=== PATIENT | female | born 1960 | race Caucasian/White ===

== ENCOUNTER 2020-07-27 12:28 | Emergency (ER) | payer OTHER ==
[~2020-07-27] VITALS: Ht 165.1 cm; Wt 89.8 kg
[~2020-07-27 12:28] MED LIST: ZESTRIL5 MG PO
[2020-07-27 12:47] VITALS: Ht 165.1 cm; Wt 89.8 kg
[2020-07-27 14:47] VITALS: BP 144/89
== END 2020-07-27 14:47 | disposition home or self-care (01) ==
LOC: ED 12:28
DX: S82.402A Unspecified fracture of shaft of left fibula, initial encounter for closed fracture (principal); I10 Essential (primary) hypertension; X58.XXXA Exposure to other specified factors, initial encounter; Y93.89 Activity, other specified; Y92.89 Other specified places as the place of occurrence of the external cause; Y99.8 Other external cause status
CPT/HCPCS: Q0092